=== PATIENT | male | born 1980 | race Caucasian/White ===

== ENCOUNTER 2016-10-29 11:21 | Emergency (ER) | payer OTHER ==
[~2016-10-29] VITALS: Ht 177.8 cm; Wt 108.9 kg
[~2016-10-29 11:21] MED LIST: LISINOPRIL20 MG PO; NORCO 5-325 TA1 EACH PO; PROVENTIL HFA6.7 G1 INH; TAMIFLU75 MG PO; TENORMIN50 MG PO; TRAZODONE HCL50 MG PO; XANAX1 MG PO
[2016-10-29] MEDS ORDERED: LISINOPRIL40 MG PO (11:41)
[2016-10-29] MEDS ORDERED: PERCOCET 5-3251 EACH PO (14:09)
[2016-10-29 14:18] VITALS: BP 131/84
== END 2016-10-29 14:23 | disposition home or self-care (01) ==
LOC: ER 11:21
DX: G89.29 Other chronic pain (principal); M54.5 Low back pain; I10 Essential (primary) hypertension; Z98.890 Other specified postprocedural states; Z88.6 Allergy status to analgesic agent; F17.210 Nicotine dependence, cigarettes, uncomplicated; F15.10 Other stimulant abuse, uncomplicated

== ENCOUNTER → 2018-03-17 | Outpatient (CLI) | payer OTHER ==
[~2018-03-17] MED LIST changes: +LISINOPRIL40 MG PO; +PERCOCET 5-3251 EACH PO
== END ==
LOC: MRI 11:47
DX: M47.816 Spondylosis without myelopathy or radiculopathy, lumbar region (principal); M51.27 Other intervertebral disc displacement, lumbosacral region; M48.062 Spinal stenosis, lumbar region with neurogenic claudication

== ENCOUNTER 2018-11-25 15:45 | Emergency (ER) | payer OTHER ==
[~2018-11-25] VITALS: Ht 177.8 cm; Wt 98.4 kg
[2018-11-25 16:10] VITALS: BP 184/14
[2018-11-25] MEDS ORDERED: ADDERALL 20 MG20 MG PO (16:22)
[2018-11-25] MEDS ORDERED: PREDNISONE 10 M10 MG PO (16:23)
[2018-11-25] MEDS ORDERED: VALSARTAN-HCTZ1 EAC2 PO (16:23)
== END 2018-11-25 18:40 | disposition home or self-care (01) ==
LOC: ER 15:45
DX: R32 Unspecified urinary incontinence (principal); F17.210 Nicotine dependence, cigarettes, uncomplicated; I10 Essential (primary) hypertension; Z88.6 Allergy status to analgesic agent

== ENCOUNTER 2019-05-22 21:11 | Emergency (ER) | payer OTHER ==
[~2019-05-22] VITALS: Ht 177.8 cm; Wt 108.9 kg
[~2019-05-22 21:11] MED LIST changes: +ADDERALL 20 MG20 MG PO; +PREDNISONE 10 M10 MG PO; +VALSARTAN-HCTZ1 EAC2 PO
[2019-05-22 21:37] LABS: URINE BILIRUBIN NEGATIVE (Negative); URINE BLOOD 2+ (Negative); URINE CLARITY CLEAR; URINE COLOR YELLOW; URINE GLUCOSE-RANDOM* NEGATIVE (Negative); URINE KETONES NEGATIVE (Negative); URINE LEUKOCYTES-REFLEX NEGATIVE (Negative); URINE NITRITE-REFLEX NEGATIVE (Negative); URINE PROTEIN (DIPSTICK) NEGATIVE (Negative); URINE SPECIFIC GRAVITY 1.025 (1.005-1.035); URINE UROBILINOGEN 0.2 E.U./dl (0.2-1.0)
[2019-05-22 21:47] LABS: CASTS None Seen /LPF (None Seen); CRYSTALS None Seen /LPF (None Seen); SQUAMOUS None Seen /LPF (0-3); URINE RBC 3-10 Few /HPF (0-2); URINE WBC-REFLEX None Seen /HPF (0-5)
[2019-05-22 21:48] LABS: BACTERIA-REFLEX 1-9 Few /HPF (None Seen)
[2019-05-22] MEDS ORDERED: TOPROL XL25 MG PO (23:25)
[2019-05-22 23:40] LABS: ABSOLUTE NEUTROPHILS 9.4 thou/uL (1.4-8.2); BASOPHILS 0.3 % (0.0-2.0); EOSINOPHILS 3.4 % (0.0-3.0); HEMATOCRIT 47.2 % (42.0-52.0); HEMOGLOBIN 15.7 gm/dL (14.0-18.0); LYMPHOCYTES 20.7 % (24.0-44.0); MCH 28.6 pg (26.0-34.0); MCHC 33.2 g/dL (28.0-37.0); MCV 86.2 fL (80.0-100.0); MONOCYTES 7.7 % (1.0-8.0); PLATELET COUNT 223 thou/uL (150-400); POLYS 67.9 % (36.0-66.0); RBC 5.47 mil/uL (4.50-6.00); WBC 13.8 thou/uL (4.0-11.0)
[2019-05-22 23:44] LABS: ANION GAP 10 mmol/L (7-16); BUN 10 mg/dL (7-18); CALCIUM 8.1 mg/dL (8.5-10.1); CHLORIDE 102 mmol/L (98-107); CO2 27 mmol/L (21-32); CREATININE 0.9 mg/dL (0.7-1.3); GLUCOSE 93 mg/dL (74-106); POTASSIUM 3.7 mmol/L (3.5-5.1); SODIUM 139 mmol/L (136-145)
[2019-05-22 23:49] LABS: ALBUMIN 3.6 g/dL (3.4-5.0); DIRECT BILIRUBIN < 0.1 mg/dL (<0.1-0.2); LIPASE 91 U/L (73-393); SGOT 22 U/L (15-37); SGPT 35 U/L (30-65); TOTAL BILIRUBIN 0.3 mg/dL (<0.1-1.0)
[2019-05-23 01:00] VITALS: BP 138/85
[2019-05-23] MEDS ORDERED: SENNA-DOCUSATE1 EAC1 PO (01:31)
[2019-05-23] MEDS ORDERED: NORCO 5-325 TA1 EAC1 PO (01:31)
[2019-05-23] MEDS ORDERED: IBUPROFEN 800800 M1 PO (01:31)
[2019-05-23] MEDS ORDERED: TORADOL 10 MG T10 MG PO (14:43)
== END 2019-05-23 02:28 | disposition home or self-care (01) ==
LOC: ER 21:11
PROVIDERS: Emergency Medicine; Nurse Practitioner Family
DX: R10.31 Right lower quadrant pain (principal); I10 Essential (primary) hypertension; F17.210 Nicotine dependence, cigarettes, uncomplicated; Z88.8 Allergy status to other drugs, medicaments and biological substances

== ENCOUNTER 2019-05-23 11:30 | Emergency (ER) | payer OTHER ==
[~2019-05-23] VITALS: Ht 177.8 cm; Wt 108.9 kg
[~2019-05-23 11:30] MED LIST changes: +IBUPROFEN 800800 M1 PO; +NORCO 5-325 TA1 EAC1 PO; +SENNA-DOCUSATE1 EAC1 PO; +TOPROL XL25 MG PO
[2019-05-23 12:05] LABS: URINE BILIRUBIN NEGATIVE (Negative); URINE BLOOD 2+ (Negative); URINE CLARITY CLEAR; URINE COLOR YELLOW; URINE GLUCOSE-RANDOM* NEGATIVE (Negative); URINE KETONES NEGATIVE (Negative); URINE LEUKOCYTES-REFLEX NEGATIVE (Negative); URINE NITRITE-REFLEX NEGATIVE (Negative); URINE PROTEIN (DIPSTICK) NEGATIVE (Negative); URINE SPECIFIC GRAVITY 1.025 (1.005-1.035); URINE UROBILINOGEN 0.2 E.U./dl (0.2-1.0)
[2019-05-23 12:22] LABS: BACTERIA-REFLEX 1-9 Few /HPF (None Seen); CASTS None Seen /LPF (None Seen); CRYSTALS None Seen /LPF (None Seen); SQUAMOUS 0-3 Few /LPF (0-3); URINE RBC 3-10 Few /HPF (0-2); URINE WBC-REFLEX None Seen /HPF (0-5)
[2019-05-23 12:26] LABS: ABSOLUTE NEUTROPHILS 8.7 thou/uL (1.4-8.2); BASOPHILS 0.3 % (0.0-2.0); EOSINOPHILS 3.6 % (0.0-3.0); HEMATOCRIT 46.7 % (42.0-52.0); HEMOGLOBIN 15.5 gm/dL (14.0-18.0); LYMPHOCYTES 15.7 % (24.0-44.0); MCH 28.8 pg (26.0-34.0); MCHC 33.1 g/dL (28.0-37.0); MCV 86.8 fL (80.0-100.0); MONOCYTES 8.6 % (1.0-8.0); PLATELET COUNT 218 thou/uL (150-400); POLYS 71.8 % (36.0-66.0); RBC 5.37 mil/uL (4.50-6.00); RDW 13.3 % (10.5-14.5)
[2019-05-23 12:30] LABS: ANION GAP 6 mmol/L (7-16); BUN 12 mg/dL (7-18); CALCIUM 8.7 mg/dL (8.5-10.1); CHLORIDE 103 mmol/L (98-107); CO2 30 mmol/L (21-32); CREATININE 0.9 mg/dL (0.7-1.3); GLUCOSE 115 mg/dL (74-106); POTASSIUM 4.2 mmol/L (3.5-5.1); SODIUM 139 mmol/L (136-145)
[2019-05-23 12:36] LABS: ALBUMIN 3.5 g/dL (3.4-5.0); DIRECT BILIRUBIN < 0.1 mg/dL (<0.1-0.2); SGOT 18 U/L (15-37); SGPT 36 U/L (30-65); TOTAL BILIRUBIN 0.3 mg/dL (<0.1-1.0); TOTAL PROTEIN 6.9 g/dL (6.4-8.2)
[2019-05-23] MEDS ORDERED: TORADOL 10 MG T10 MG PO (14:43)
[2019-05-23 14:53] VITALS: BP 174/117
== END 2019-05-23 14:54 | disposition home or self-care (01) ==
LOC: ER 11:30
PROVIDERS: Emergency Medicine; Nurse Practitioner Family
DX: K40.90 Unilateral inguinal hernia, without obstruction or gangrene, not specified as recurrent (principal); I10 Essential (primary) hypertension; R10.31 Right lower quadrant pain; F17.210 Nicotine dependence, cigarettes, uncomplicated